=== PATIENT | female | born 1975 | race Caucasian/White ===

== ENCOUNTER 2020-12-17 13:39 | Emergency (ER) | payer OTHER, BC ==
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
== END 2020-12-17 16:27 | disposition home or self-care (01) ==
LOC: JP.ED 13:39
DX: S52.571A Other intraarticular fracture of lower end of right radius, initial encounter for closed fracture (principal); Z88.1 Allergy status to other antibiotic agents; V27.4XXA Motorcycle driver injured in collision with fixed or stationary object in traffic accident, initial encounter; Y93.55 Activity, bike riding
CPT/HCPCS: 73110-RT; 99283-25